=== PATIENT | male | born 1935 | race Caucasian/White ===

== ENCOUNTER 2021-11-19 10:30 | Outpatient (CLI) | payer SELFPAY ==
[~2021-11-19 10:30] MED LIST: ASCO500C18 PO; FEOSOL PO; GLIM4TAB7 PO; HYDR12.5 PO; LEVO200T43 PO; MELA5TAB12 PO; METO50TA7 PO; MULT1TAB PO; OMEP-84 PO; POTA-82 PO; RIVA20TA PO; ROSU10TA2 PO; SACU1TAB; SYN0.025T PO; TRAZ-256 PO
== END 2021-11-19 23:59 | disposition home or self-care (01) ==
LOC: VAS 10:30
DX: Z13.6 Encounter for screening for cardiovascular disorders (principal)

== ENCOUNTER 2023-05-25 08:18 | Day surgery (SDC) | payer MEDICARE ==
[~2023-05-25] VITALS: Ht 180.3 cm; Wt 77.6 kg
[2023-05-25] VITALS (7 sets, daily range): BP systolic 178–191; BP diastolic 80–94; PULSE 65–80; RESP 16; TEMP 97.9; O2SAT 95–97
[~2023-05-25 08:18] MED LIST changes: +POTA-366 PO; -POTA-82 PO
[2023-05-25] MEDS ORDERED: METO-411 PO (08:53)
[2023-05-25] MEDS ORDERED: ROSU40TA22 PO (08:53)
[2023-05-25] MEDS ORDERED: IRON45TA7 PO (08:55)
[2023-05-25] MEDS ORDERED: FLO0.4C PO (08:58)
== END 2023-05-25 10:50 | disposition home or self-care (01) ==
LOC: SSTAY O 08:18
PROVIDERS: ATTEND Radiology Vascular & Interventional Radiology
DX: J90 Pleural effusion, not elsewhere classified (principal); I10 Essential (primary) hypertension; D50.9 Iron deficiency anemia, unspecified; E03.9 Hypothyroidism, unspecified; E11.9 Type 2 diabetes mellitus without complications; K21.9 Gastro-esophageal reflux disease without esophagitis; E78.5 Hyperlipidemia, unspecified; N40.0 Benign prostatic hyperplasia without lower urinary tract symptoms; I48.91 Unspecified atrial fibrillation; Z95.810 Presence of automatic (implantable) cardiac defibrillator; Z88.5 Allergy status to narcotic agent; Z79.899 Other long term (current) drug therapy
CPT/HCPCS: 32555; C1729; J3490

== ENCOUNTER 2023-07-14 11:25 | Day surgery (SDC) | payer MEDICARE ==
[2023-07-14] VITALS (7 sets, daily range): BP systolic 132–188; BP diastolic 63–95; PULSE 65–81; RESP 14–16; TEMP 97.7; O2SAT 93–99
[~2023-07-14] VITALS: Ht 172.7 cm; Wt 72.8 kg
[~2023-07-14 11:25] MED LIST changes: -FEOSOL PO; +FLO0.4C PO; +IRON45TA7 PO; +METO-411 PO; -ROSU10TA2 PO; +ROSU40TA22 PO; -SYN0.025T PO
[2023-07-14] MEDS ORDERED: normal saline 1,000 ML IV SCH (11:55)
[2023-07-14] MEDS ORDERED: LORazepam 0.5 MG tablet PO PRN (11:55)
[2023-07-14] MEDS ORDERED: LIDOcaine 1% (10mg/ml)w/preservative inj. 20ml MDV ONE (12:03)
[2023-07-14] MEDS ORDERED: iohexol 350 MG/ML 50ML vial IV ONE (12:03)
[2023-07-14] MEDS ORDERED: fentaNYL/PF 50MCG/1 ML 2ML syringe ONE (12:03)
[2023-07-14] MEDS ORDERED: midazolam 1 mg/ML 2ml injection ONE (12:03)
[2023-07-14] MEDS ORDERED: SPIR25TA5 PO (12:27)
[2023-07-14] MEDS ORDERED: SACU1TAB4 PO (12:27)
[2023-07-14] MEDS ORDERED: FURO20TA4 PO (12:30)
[2023-07-14] MEDS ORDERED: ALLO100T PO (12:33)
[2023-07-14] MEDS ORDERED: GLIM2TAB6 PO (12:34)
[2023-07-14] MEDS ORDERED: CLON0.1T2 PO (12:35)
[2023-07-14] MEDS ORDERED: potassium Cl 20mEq/100mL bag 100 ML IV ONE ×2 (12:48→12:49)
[2023-07-14 12:59] LABS: INR 0.9 INR; PROTHROMBIN TIME 10.2 SECONDS (9.0-12.0)
[2023-07-14 13:06] LABS: ALBUMIN 2.9 G/DL (3.4-5.0); ANION GAP 4 (8-16); BLOOD UREA NITROGEN 25 MG/DL (7-18); BUN/CREATININE RATIO 16.6 (10.0-20.0); CALCIUM 9.2 MG/DL (8.5-10.1); CHLORIDE 101 MMOL/L (99-107); CREATININE 1.51 MG/DL (0.60-1.10); GLUCOSE 80 MG/DL (70-104); SODIUM 139 MMOL/L (135-145); TOTAL CARBON DIOXIDE 34.5 MMOL/L (24-32); eCRCL 34 ML/MIN; eGFR 44 ML/MIN
[2023-07-14 13:09] LABS: POTASSIUM 2.7 MMOL/L (3.5-5.1)
[2023-07-14] MEDS ORDERED: hydrALAZINE 20mg/ml inj. IV ONE (13:47)
[2023-07-14] MEDS ORDERED: HYDROcodone/acetaminophen 10/325mg tab PO PRN (14:10)
[2023-07-14] MEDS ORDERED: HYDROcodone/acetaminophen 5mg/325mg tablet PO PRN (14:10)
[2023-07-14] MEDS ORDERED: potassium Cl 20 mEq SR tablet PO ONE (14:15)
[2023-07-15 06:10] LABS: ISTAT HGB MIX 12.2 g/dl (14.0-17.9); ISTAT Hct MIX 36 %PCV (42-52); ISTAT O2 SATURATION MIX VENOUS 58 % (60-80); ISTAT SOURCE VEN
== END 2023-07-14 16:20 | disposition home or self-care (01) ==
LOC: SSTAY O 11:25
PROVIDERS: ATTEND Student in an Organized Health Care Education/Training Program
DX: I11.0 Hypertensive heart disease with heart failure (principal); I50.9 Heart failure, unspecified; E03.9 Hypothyroidism, unspecified; M10.9 Gout, unspecified; E78.5 Hyperlipidemia, unspecified; G47.30 Sleep apnea, unspecified; I48.0 Paroxysmal atrial fibrillation; I49.5 Sick sinus syndrome; Z79.899 Other long term (current) drug therapy; Z88.5 Allergy status to narcotic agent; Z95.0 Presence of cardiac pacemaker
CPT/HCPCS: 33289; 36415; 80048; 82803; 85014; 85610; 93005; 99152; 99153; C2624; J0360; J1644; J2250; J3010; J3480; J3490; J7030; Q9967; 85025; A6258; A6402; C1751; C1769; C1894

== ENCOUNTER 2024-07-15 16:33 | Inpatient (IN) | payer MEDICARE ==
[~2024-07-15] VITALS: Ht 180.3 cm; Wt 64.2 kg
[~2024-07-15 16:33] MED LIST changes: +ALLO100T PO; +CLON0.1T2 PO; +FURO20TA4 PO; +GLIM2TAB6 PO; -ROSU40TA22 PO; +ROSU40TA89 PO; -SACU1TAB; +SACU1TAB4 PO; +SPIR25TA5 PO
[2024-07-15 17:05] LABS: BASOPHILS % (AUTO) 0.1 % (0-1); EOSINOPHILS # (AUTO) 0.2 X10'3 (0-0.9); EOSINOPHILS % (AUTO) 1.6 % (0-6); HEMATOCRIT 28.9 % (42.0-52.0); HEMOGLOBIN 9.8 g/dl (14.0-17.9); LYMPHOCYTES # (AUTO) 0.6 X10'3 (1.1-4.8); LYMPHOCYTES % (AUTO) 6.1 % (21-51); MEAN CORPUSCULAR HEMOGLOBIN 32.8 PG (27.0-31.0); MEAN CORPUSCULAR HGB CONC 34.1 g/dL (33.0-36.5); MEAN CORPUSCULAR VOLUME 96.2 FL (78-98); MEAN PLATELET VOLUME 7.4 FL (7.4-10.4); MONOCYTES # (AUTO) 0.7 X10'3 (0-0.9); MONOCYTES % (AUTO) 6.9 % (2-12); NEUTROPHILS # (AUTO) 8.1 X10'3 (1.8-7.7); NEUTROPHILS % (AUTO) 85.3 % (42-75); PLATELET COUNT 324 X10'3 (140-440); WHITE BLOOD COUNT 9.5 X10'3 (4.5-11.0)
[2024-07-15 17:11] LABS: ALANINE AMINOTRANSFERASE 25 U/L (12-78); ALBUMIN 3.3 G/DL (3.4-5.0); ALBUMIN/GLOBULIN RATIO 0.7 (1.1-1.5); ALKALINE PHOSPHATASE 65 IU/L (46-116); ANION GAP 14 (8-16); ASPARTATE AMINO TRANSFERASE 13 U/L (10-37); BILIRUBIN,TOTAL 0.4 MG/DL (0.1-1.0); BLOOD UREA NITROGEN 140 MG/DL (7-18); BUN/CREATININE RATIO 41.5 (10.0-20.0); CALCIUM 9.7 MG/DL (8.5-10.1); CHLORIDE 100 MMOL/L (99-107); CREATININE 3.37 MG/DL (0.60-1.10); GLUCOSE 136 MG/DL (70-104); POTASSIUM 5.3 MMOL/L (3.5-5.1); SODIUM 132 MMOL/L (135-145); TOTAL CARBON DIOXIDE 18.5 MMOL/L (24-32); TOTAL PROTEIN 8.3 G/DL (6.4-8.2); eCRCL 14 ML/MIN; eGFR 17 ML/MIN
[2024-07-15 17:19] LABS: MAGNESIUM 2.4 MG/DL (1.5-2.4); PRO BRAIN NATRIURETIC PEPTIDE 6435 PG/ML (0-450)
[2024-07-15 19:17] LABS: BILIRUBIN,URINE NEGATIVE (Neg); CLARITY,URINE CLEAR (Clear); COLOR,URINE YELLOW (Yellow); GLUCOSE, URINE NEGATIVE (Neg); KETONES,URINE NEGATIVE (Neg); LEUKOCYTE ESTERASE ,URINE NEGATIVE (Neg); NITRITES, URINE NEGATIVE (Neg); OCCULT BLOOD,URINE NEGATIVE (Neg); PH,URINE 5.5 (4.8-8.0); PROTEIN,URINE 100 mg/dl (Neg); UROBILINOGEN,URINE 0.2 E.U/dL (0.2-1.0)
[2024-07-15 19:25] LABS: UA COLLECTION TYPE FOLEY CATH
[2024-07-15 19:32] LABS: BACTERIA,URINE FEW /HPF (Neg); MUCUS STRANDS NONE SEEN /LPF (Neg); RBC,URINE 0-2 /HPF (0-2); SQUAMOUS EPITHELIAL CELL,UR NONE SEEN /LPF (FEW); WBC,URINE 0-4 /HPF (0-4)
[2024-07-15 19:33] LABS: HYALINE CASTS 0-3 /LPF (NEGATIVE)
[2024-07-15] MEDS: PERFLUTREN PROTEIN-A MICROSPHR (Optison) 0.22 MG/ML 3ML VIAL IV ONE (19:40)
[2024-07-15] MEDS ORDERED: potassium Cl 20 mEq SR tablet PO PRN ×2 (21:55)
[2024-07-15] MEDS ORDERED: HYDROcodone/acetaminophen 5mg/325mg tablet PO PRN (21:55)
[2024-07-15] MEDS ORDERED: ondansetron/PF 4mg/2ml inj IV PRN (21:55)
[2024-07-15] MEDS ORDERED: mag hydrox/Alum hydrox/simeth 30ml oral suspension PO PRN (21:55)
[2024-07-15] MEDS ORDERED: magnesium hydroxide 30ml (MOM) UD suspension PO PRN (21:55)
[2024-07-15] MEDS ORDERED: potassium Cl 40MEQ/1/2NS 520ml 520 ML IV PRN (21:55)
[2024-07-15] MEDS ORDERED: magnesium Cl slow-release 64mg tablet PO PRN (21:55)
[2024-07-15] MEDS ORDERED: magnesium sulf-water 4G/100mL 100 ML IV PRN (21:55)
[2024-07-15] MEDS ORDERED: magnesium sulf-water 2g/50mL 50 ML IV PRN (21:55)
[2024-07-15] MEDS ORDERED: acetaminophen 325mg tablet PO PRN ×2 (21:55)
[2024-07-15 22:35] VITALS: BP 127/58; PULSE 84; RESP 16; TEMP 97.9; O2SAT 100
[2024-07-15 22:46] LABS: INR 1.1 INR; PROTHROMBIN TIME 11.4 SECONDS (9.0-12.0)
[2024-07-15 23:00] VITALS: RESP 16; O2SAT 100
[2024-07-15 23:11] LABS: PHOSPHORUS 4.2 MG/DL (2.3-4.5)
[2024-07-15 23:14] LABS: TOTAL PROTEIN,URINE RANDOM 108.2 MG/DL
[2024-07-16] MEDS ORDERED: APIX2.5T PO (00:13)
[2024-07-16] MEDS ORDERED: [UNRECOGNIZED DRUG - OTHER] PO (00:13)
[2024-07-16] MEDS ORDERED: SENN-294 PO (00:13)
[2024-07-16] MEDS: tamsulosin 0.4mg capsule PO SCH (00:21)
[2024-07-16 06:49] LABS: INR 1.1 INR; PROTHROMBIN TIME 11.4 SECONDS (9.0-12.0)
[2024-07-16 06:51] VITALS: BP 106/56; PULSE 70; RESP 16; TEMP 97.8; O2SAT 97
[2024-07-16 07:00] LABS: ALBUMIN 2.8 G/DL (3.4-5.0); ANION GAP 13 (8-16); BLOOD UREA NITROGEN 135 MG/DL (7-18); BUN/CREATININE RATIO 42.7 (10.0-20.0); CHLORIDE 102 MMOL/L (99-107); CHOL/HDL RATIO 1.8 (0.00-4.99); CHOLESTEROL 87 MG/DL (0-200); CREATININE 3.16 MG/DL (0.60-1.10); GLUCOSE 123 MG/DL (70-104); HDL CHOLESTEROL 48 MG/DL (35-60); LDL CHOLESTEROL 37 MG/DL (50-100); MAGNESIUM 2.2 MG/DL (1.5-2.4); PHOSPHORUS 3.9 MG/DL (2.3-4.5); POTASSIUM 4.8 MMOL/L (3.5-5.1); SODIUM 134 MMOL/L (135-145); TOTAL CARBON DIOXIDE 19.2 MMOL/L (24-32); TRIGLYCERIDES 77 MG/DL (20-135); eCRCL 15 ML/MIN; eGFR 19 ML/MIN
[2024-07-16 07:03] LABS: BASOPHILS % (AUTO) 0.2 % (0-1); EOSINOPHILS # (AUTO) 0.2 X10'3 (0-0.9); EOSINOPHILS % (AUTO) 2.1 % (0-6); HEMATOCRIT 28.3 % (42.0-52.0); HEMOGLOBIN 9.8 g/dl (14.0-17.9); LYMPHOCYTES # (AUTO) 0.5 X10'3 (1.1-4.8); LYMPHOCYTES % (AUTO) 5.6 % (21-51); MEAN CORPUSCULAR HEMOGLOBIN 34.5 PG (27.0-31.0); MEAN CORPUSCULAR HGB CONC 34.7 g/dL (33.0-36.5); MEAN CORPUSCULAR VOLUME 99.4 FL (78-98); MEAN PLATELET VOLUME 7.7 FL (7.4-10.4); MONOCYTES # (AUTO) 0.7 X10'3 (0-0.9); MONOCYTES % (AUTO) 8.6 % (2-12); NEUTROPHILS % (AUTO) 83.5 % (42-75); PLATELET COUNT 290 X10'3 (140-440); RED BLOOD COUNT 2.85 X10'6 (4.70-6.10); RED CELL DISTRIBUTION WIDTH 13.6 % (11.5-14.5); WHITE BLOOD COUNT 8.4 X10'3 (4.5-11.0)
[2024-07-16] MEDS: pantoprazole 40 MG vial IV SCH (08:03)
[2024-07-16] MEDS: docusate sod 100mg capsule PO SCH (08:03)
[2024-07-16] MEDS: K and/or MAG REPLACEMENT MC SCH (08:04)
[2024-07-16 08:10] VITALS: RESP 16
[2024-07-16 10:00] VITALS: BP 100/50; PULSE 77; TEMP 98.3; O2SAT 95
[2024-07-16] MEDS: HYDROcodone/acetaminophen 10/325mg tab PO PRN (11:34)
[2024-07-16 11:39] LABS: % IRON SATURATION 15 % (11-46); IRON 32 UG/DL (53-167); TOTAL IRON BINDING CAPACITY 214 UG/DL (259-388)
[2024-07-16] MEDS ORDERED: [UNRECOGNIZED DRUG - MIXTURE] PO SCH (15:40)
[2024-07-16 19:10] VITALS: BP 136/63; PULSE 85; RESP 16; RESP 18; TEMP 96.5; O2SAT 100; O2SAT 97
[2024-07-16] MEDS: SACUBITRIL PO SCH (20:00)
[2024-07-16] MEDS: VALSARTAN PO SCH (20:00)
[2024-07-16] MEDS: apixaban 2.5mg tablet PO SCH (20:57)
[2024-07-16] MEDS: furosemide 20MG tablet PO SCH (20:57)
[2024-07-16] MEDS: ascorbic acid 500mg tablet PO SCH (20:57)
[2024-07-16] MEDS: traZODone 50mg tablet PO SCH (20:58)
[2024-07-16] MEDS: MELATONIN 5 MG PO SCH (21:00)
[2024-07-16] MEDS: diatr meglu/diatrizoate 30ml oral sol.-(3 dose) bottle PO SCH (21:05)
[2024-07-16 22:00] VITALS: BP 136/63; PULSE 85; RESP 16; TEMP 96.5; O2SAT 97
[2024-07-17 04:33] LABS: INR 1.1 INR; PROTHROMBIN TIME 11.4 SECONDS (9.0-12.0)
[2024-07-17 04:36] LABS: BASOPHILS % (AUTO) 0.2 % (0-1); EOSINOPHILS # (AUTO) 0.2 X10'3 (0-0.9); EOSINOPHILS % (AUTO) 1.9 % (0-6); HEMATOCRIT 28.1 % (42.0-52.0); HEMOGLOBIN 9.6 g/dl (14.0-17.9); LYMPHOCYTES # (AUTO) 0.4 X10'3 (1.1-4.8); LYMPHOCYTES % (AUTO) 4.9 % (21-51); MEAN CORPUSCULAR HEMOGLOBIN 32.9 PG (27.0-31.0); MEAN CORPUSCULAR HGB CONC 34.1 g/dL (33.0-36.5); MEAN CORPUSCULAR VOLUME 96.4 FL (78-98); MEAN PLATELET VOLUME 7.4 FL (7.4-10.4); MONOCYTES # (AUTO) 0.7 X10'3 (0-0.9); MONOCYTES % (AUTO) 7.3 % (2-12); NEUTROPHILS # (AUTO) 7.9 X10'3 (1.8-7.7); NEUTROPHILS % (AUTO) 85.7 % (42-75); PLATELET COUNT 271 X10'3 (140-440); RED BLOOD COUNT 2.92 X10'6 (4.70-6.10); WHITE BLOOD COUNT 9.2 X10'3 (4.5-11.0)
[2024-07-17 04:55] LABS: ALBUMIN 2.8 G/DL (3.4-5.0); ANION GAP 12 (8-16); BLOOD UREA NITROGEN 129 MG/DL (7-18); BUN/CREATININE RATIO 40.8 (10.0-20.0); CALCIUM 8.9 MG/DL (8.5-10.1); CHLORIDE 104 MMOL/L (99-107); CREATININE 3.16 MG/DL (0.60-1.10); GLUCOSE 112 MG/DL (70-104); LACTATE DEHYDROGENASE 138 U/L (85-227); MAGNESIUM 2.2 MG/DL (1.5-2.4); PHOSPHORUS 3.8 MG/DL (2.3-4.5); POTASSIUM 4.5 MMOL/L (3.5-5.1); SODIUM 136 MMOL/L (135-145); TOTAL CARBON DIOXIDE 20.5 MMOL/L (24-32); eCRCL 15 ML/MIN; eGFR 19 ML/MIN
[2024-07-17 05:00] VITALS: BP 131/58; PULSE 94; RESP 15; TEMP 97; O2SAT 99
[2024-07-17] MEDS: potassium Cl 20 mEq SR tablet PO SCH (08:00)
[2024-07-17] MEDS: levoTHYROXINE 100mcg tablet PO SCH (08:12)
[2024-07-17] MEDS: sennosides/docusate sodium tablet PO SCH (08:13)
[2024-07-17] MEDS: HYDROchlorothiazide 12.5mg capsule PO SCH (08:13)
[2024-07-17] MEDS: metoprolol succinate 25mg (24-HOUR) SR. Tablet PO SCH (08:13)
[2024-07-17] MEDS: atorvastatin 20mg tablet PO SCH (08:13)
[2024-07-17] MEDS: multivitamins, therapeutics tablet PO SCH (08:15)
[2024-07-17] MEDS: spironolactone 25 MG tablet PO SCH (08:15)
[2024-07-17] MEDS: cloNIDine 0.1 mg tablet PO SCH (08:15)
[2024-07-17] MEDS: tamsulosin 0.4mg capsule PO SCH (08:15)
[2024-07-17] MEDS: pantoprazole 40mg Tablet.DR PO SCH (08:15)
[2024-07-17 08:25] VITALS: RESP 16
[2024-07-17 10:33] VITALS: BP 105/49; PULSE 82; RESP 18; TEMP 97.8; O2SAT 98
[2024-07-17 11:22] VITALS: BP_SYST 105; BP_SYST 84; BP_SYST 94; BP_DIAS 24; BP_DIAS 39; BP_DIAS 49; PULSE 81; PULSE 82; PULSE 84
[2024-07-17 16:11] LABS: OCCULT BLOOD STOOL POSITIVE (Neg)
[2024-07-17 19:00] VITALS: BP 97/51; PULSE 78; RESP 16; TEMP 97.7; O2SAT 93
[2024-07-17 22:30] VITALS: BP 105/59; PULSE 89; RESP 16; TEMP 97.8; O2SAT 94
[2024-07-18 06:31] LABS: BASOPHILS % (AUTO) 0.1 % (0-1); EOSINOPHILS # (AUTO) 0.1 X10'3 (0-0.9); EOSINOPHILS % (AUTO) 1.2 % (0-6); HEMATOCRIT 24.6 % (42.0-52.0); HEMOGLOBIN 8.3 g/dl (14.0-17.9); LYMPHOCYTES # (AUTO) 0.4 X10'3 (1.1-4.8); LYMPHOCYTES % (AUTO) 3.4 % (21-51); MEAN CORPUSCULAR HEMOGLOBIN 32.2 PG (27.0-31.0); MEAN CORPUSCULAR HGB CONC 33.7 g/dL (33.0-36.5); MEAN CORPUSCULAR VOLUME 95.6 FL (78-98); MEAN PLATELET VOLUME 7.6 FL (7.4-10.4); MONOCYTES % (AUTO) 8.1 % (2-12); NEUTROPHILS # (AUTO) 10.8 X10'3 (1.8-7.7); NEUTROPHILS % (AUTO) 87.2 % (42-75); PLATELET COUNT 237 X10'3 (140-440); RED BLOOD COUNT 2.57 X10'6 (4.70-6.10); RED CELL DISTRIBUTION WIDTH 13.6 % (11.5-14.5); WHITE BLOOD COUNT 12.4 X10'3 (4.5-11.0)
[2024-07-18 06:43] LABS: INR 1.1 INR; PROTHROMBIN TIME 11.9 SECONDS (9.0-12.0)
[2024-07-18 06:46] LABS: ALBUMIN 2.3 G/DL (3.4-5.0); ANION GAP 11 (8-16); BLOOD UREA NITROGEN 102 MG/DL (7-18); BUN/CREATININE RATIO 41.1 (10.0-20.0); CALCIUM 8.3 MG/DL (8.5-10.1); CHLORIDE 103 MMOL/L (99-107); CREATININE 2.48 MG/DL (0.60-1.10); GLUCOSE 128 MG/DL (70-104); POTASSIUM 4.2 MMOL/L (3.5-5.1); SODIUM 137 MMOL/L (135-145); TOTAL CARBON DIOXIDE 22.9 MMOL/L (24-32); eCRCL 14 ML/MIN; eGFR 25 ML/MIN
[2024-07-18 10:00] VITALS: BP 99/75; PULSE 96; RESP 18; TEMP 97.5; O2SAT 96
[2024-07-18 18:00] VITALS: BP 118/51; PULSE 90; RESP 20; TEMP 98; O2SAT 97
[2024-07-18 20:37] LABS: HEMATOCRIT 23.6 % (42.0-52.0); HEMOGLOBIN 7.9 g/dl (14.0-17.9); MEAN CORPUSCULAR HEMOGLOBIN 31.9 PG (27.0-31.0); MEAN CORPUSCULAR HGB CONC 33.5 g/dL (33.0-36.5); MEAN CORPUSCULAR VOLUME 95.5 FL (78-98); MEAN PLATELET VOLUME 7.1 FL (7.4-10.4); PLATELET COUNT 229 X10'3 (140-440); RED BLOOD COUNT 2.47 X10'6 (4.70-6.10); WHITE BLOOD COUNT 9.5 X10'3 (4.5-11.0)
[2024-07-18 22:00] VITALS: BP 128/53; PULSE 81; RESP 16; TEMP 98.1; O2SAT 98
[2024-07-18] MEDS: nystatin 15 GM powder TP SCH (23:12)
[2024-07-19 03:02] LABS: BASOPHILS % (AUTO) 0.1 % (0-1); EOSINOPHILS # (AUTO) 0.1 X10'3 (0-0.9); EOSINOPHILS % (AUTO) 1.7 % (0-6); HEMOGLOBIN 7.9 g/dl (14.0-17.9); LYMPHOCYTES # (AUTO) 0.5 X10'3 (1.1-4.8); LYMPHOCYTES % (AUTO) 5.5 % (21-51); MEAN CORPUSCULAR HEMOGLOBIN 32.5 PG (27.0-31.0); MEAN CORPUSCULAR HGB CONC 34.3 g/dL (33.0-36.5); MEAN CORPUSCULAR VOLUME 94.7 FL (78-98); MEAN PLATELET VOLUME 7.5 FL (7.4-10.4); MONOCYTES # (AUTO) 0.8 X10'3 (0-0.9); MONOCYTES % (AUTO) 9.9 % (2-12); NEUTROPHILS % (AUTO) 82.8 % (42-75); PLATELET COUNT 216 X10'3 (140-440); RED BLOOD COUNT 2.42 X10'6 (4.70-6.10); RED CELL DISTRIBUTION WIDTH 13.7 % (11.5-14.5); WHITE BLOOD COUNT 8.4 X10'3 (4.5-11.0)
[2024-07-19 03:13] LABS: INR 1.2 INR; PROTHROMBIN TIME 12.1 SECONDS (9.0-12.0)
[2024-07-19 03:15] LABS: ALBUMIN 2.3 G/DL (3.4-5.0); ANION GAP 8 (8-16); BLOOD UREA NITROGEN 92 MG/DL (7-18); BUN/CREATININE RATIO 41.4 (10.0-20.0); CALCIUM 8.1 MG/DL (8.5-10.1); CHLORIDE 104 MMOL/L (99-107); CREATININE 2.22 MG/DL (0.60-1.10); GLUCOSE 123 MG/DL (70-104); MAGNESIUM 1.8 MG/DL (1.5-2.4); PHOSPHORUS 2.7 MG/DL (2.3-4.5); POTASSIUM 3.8 MMOL/L (3.5-5.1); SODIUM 136 MMOL/L (135-145); TOTAL CARBON DIOXIDE 23.6 MMOL/L (24-32); eCRCL 16 ML/MIN; eGFR 28 ML/MIN
[2024-07-19 06:00] VITALS: BP 131/72; PULSE 103; RESP 16; TEMP 97.3; O2SAT 96
[2024-07-19] MEDS: EPOETIN ALFA-EPBX 20,000 UNIT/ML 1 ML MDV IV ONE (08:25)
[2024-07-19 10:00] VITALS: BP 133/61; PULSE 102; RESP 16; TEMP 97.5; O2SAT 98
[2024-07-19 11:12] LABS: % FREE PSA 27.3 % (.); PROSTATE SPECIFIC AG, SERUM 3.7 ng/mL (0.0-4.0); PSA, FREE 1.01 ng/mL
[2024-07-19] MEDS: EPOETIN ALFA-EPBX 20,000 UNIT/ML 1 ML MDV SQ ONE (11:22)
[2024-07-19] MEDS: iron sucrose complex injection 300 MG in normal saline 250ml IV soln 250 ML IV SCH (11:58)
[2024-07-19 12:11] LABS: BASOPHILS % (AUTO) 0.1 % (0-1); EOSINOPHILS # (AUTO) 0.1 X10'3 (0-0.9); EOSINOPHILS % (AUTO) 0.5 % (0-6); HEMATOCRIT 28.6 % (42.0-52.0); HEMOGLOBIN 9.1 g/dl (14.0-17.9); LYMPHOCYTES # (AUTO) 0.3 X10'3 (1.1-4.8); LYMPHOCYTES % (AUTO) 3.6 % (21-51); MEAN CORPUSCULAR HEMOGLOBIN 31.6 PG (27.0-31.0); MEAN CORPUSCULAR HGB CONC 31.9 g/dL (33.0-36.5); MEAN PLATELET VOLUME 7.4 FL (7.4-10.4); MONOCYTES # (AUTO) 0.9 X10'3 (0-0.9); MONOCYTES % (AUTO) 9.2 % (2-12); NEUTROPHILS # (AUTO) 8.2 X10'3 (1.8-7.7); NEUTROPHILS % (AUTO) 86.6 % (42-75); PLATELET COUNT 240 X10'3 (140-440); RED BLOOD COUNT 2.89 X10'6 (4.70-6.10); RED CELL DISTRIBUTION WIDTH 14.6 % (11.5-14.5); WHITE BLOOD COUNT 9.5 X10'3 (4.5-11.0)
[2024-07-19 12:13] LABS: MEAN CORPUSCULAR VOLUME 99.1 FL (78-98)
[2024-07-19 18:30] VITALS: BP 135/65; PULSE 99; RESP 18; TEMP 97.2; O2SAT 96
[2024-07-19] MEDS: Melatonin 3mg tablet PO SCH (20:08)
[2024-07-19 22:00] VITALS: BP 153/70; PULSE 117; RESP 14; TEMP 97.9; O2SAT 96
[2024-07-20] VITALS (14 sets, daily range): BP systolic 96–158; BP diastolic 42–87; PULSE 106–118; RESP 8–19; TEMP 97.2–98.4; O2SAT 93–100
[2024-07-20 06:31] LABS: BASOPHILS % (AUTO) 0.3 % (0-1); EOSINOPHILS # (AUTO) 0.1 X10'3 (0-0.9); EOSINOPHILS % (AUTO) 1.9 % (0-6); HEMATOCRIT 24.2 % (42.0-52.0); HEMOGLOBIN 8.3 g/dl (14.0-17.9); LYMPHOCYTES # (AUTO) 0.3 X10'3 (1.1-4.8); LYMPHOCYTES % (AUTO) 4.5 % (21-51); MEAN CORPUSCULAR HEMOGLOBIN 32.9 PG (27.0-31.0); MEAN CORPUSCULAR HGB CONC 34.2 g/dL (33.0-36.5); MEAN CORPUSCULAR VOLUME 96.1 FL (78-98); MEAN PLATELET VOLUME 7.3 FL (7.4-10.4); MONOCYTES # (AUTO) 0.7 X10'3 (0-0.9); MONOCYTES % (AUTO) 8.8 % (2-12); NEUTROPHILS # (AUTO) 6.4 X10'3 (1.8-7.7); NEUTROPHILS % (AUTO) 84.5 % (42-75); PLATELET COUNT 215 X10'3 (140-440); RED BLOOD COUNT 2.52 X10'6 (4.70-6.10); WHITE BLOOD COUNT 7.6 X10'3 (4.5-11.0)
[2024-07-20 06:35] LABS: INR 1.2 INR; PROTHROMBIN TIME 12.1 SECONDS (9.0-12.0)
[2024-07-20 06:39] LABS: ANION GAP 8 (8-16); BLOOD UREA NITROGEN 68 MG/DL (7-18); BUN/CREATININE RATIO 38.9 (10.0-20.0); CALCIUM 7.7 MG/DL (8.5-10.1); CHLORIDE 104 MMOL/L (99-107); CREATININE 1.75 MG/DL (0.60-1.10); GLUCOSE 131 MG/DL (70-104); MAGNESIUM 1.7 MG/DL (1.5-2.4); PHOSPHORUS 2.5 MG/DL (2.3-4.5); POTASSIUM 3.5 MMOL/L (3.5-5.1); SODIUM 138 MMOL/L (135-145); TOTAL CARBON DIOXIDE 26.4 MMOL/L (24-32); eCRCL 20 ML/MIN; eGFR 37 ML/MIN
[2024-07-20] MEDS ORDERED: iron sucrose complex injection 100 MG in normal saline 100ml IV soln 95 ML IV SCH (08:00)
[2024-07-20 09:28] LABS: A/G RATIO 0.8 (0.7-1.7); ALPHA-1-GLOBULIN 0.3 g/dL (0.0-0.4); BETA GLOBULIN 0.9 g/dL (0.7-1.3); GAMMA GLOBULIN 1.4 g/dL (0.4-1.8); GLOBULIN, TOTAL 3.6 g/dL (2.2-3.9); M-SPIKE Not Observed g/dL (Not Observed); PROTEIN, TOTAL, SERUM 6.6 g/dL (6.0-8.5)
[2024-07-20] MEDS: NUT.TX.IMP.RENAL FXN,LAC-REDUC (Nepro) 237 ML VANILLA PO SCH (13:00)
[2024-07-20] MEDS ORDERED: LIDOcaine 2% Viscous 15ml cup ONE (13:07)
[2024-07-20] MEDS ORDERED: fentaNYL/PF 50MCG/1 ML 2ML syringe ONE (13:08)
[2024-07-20] MEDS ORDERED: MIDAZolam 1 MG/ML 5ML VIAL ONE (13:08)
== END 2024-07-20 16:45 | DRG 377 ==
LOC: ER 16:33 → ORTHO 4S 21:47
PROVIDERS: ADMIT Internal Medicine Sleep Medicine; ATTEND Internal Medicine
PROC: CT131ZZ Planar Nuclear Medicine Imaging of Kidneys, Ureters and Bladder using Technetium 99m (Tc-99m) (ICD-10-PCS; principal; 2024-07-18)
PROC: 0DJ08ZZ Inspection of Upper Intestinal Tract, Via Natural or Artificial Opening Endoscopic (ICD-10-PCS; 2024-07-20)
DX: K92.2 Gastrointestinal hemorrhage, unspecified (principal); E43 Unspecified severe protein-calorie malnutrition; N17.0 Acute kidney failure with tubular necrosis; I13.0 Hypertensive heart and chronic kidney disease with heart failure and stage 1 through stage 4 chronic kidney disease, or unspecified chronic kidney disease; Z68.1 Body mass index [BMI] 19.9 or less, adult; I31.39 Other pericardial effusion (noninflammatory); N18.4 Chronic kidney disease, stage 4 (severe); N13.30 Unspecified hydronephrosis; N40.1 Benign prostatic hyperplasia with lower urinary tract symptoms; Z20.822 Contact with and (suspected) exposure to COVID-19; Z66 Do not resuscitate; I50.9 Heart failure, unspecified; E03.9 Hypothyroidism, unspecified; N28.1 Cyst of kidney, acquired; K59.00 Constipation, unspecified; D50.0 Iron deficiency anemia secondary to blood loss (chronic); J43.9 Emphysema, unspecified; F03.90 Unspecified dementia, unspecified severity, without behavioral disturbance, psychotic disturbance, mood disturbance, and anxiety; Z79.01 Long term (current) use of anticoagulants; Z79.84 Long term (current) use of oral hypoglycemic drugs; Z79.899 Other long term (current) drug therapy; Z88.5 Allergy status to narcotic agent; I48.0 Paroxysmal atrial fibrillation
CPT/HCPCS: 36415; 43235; 71045; 71046; 74176; 76770; 78707; 80048; 80053; 80061; 81001; 82272; 82570; 82728; 83036; 83540; 83550; 83615; 83735; 83880; 83970; 84100; 84133; 84153; 84154; 84155; 84156; 84165; 84300; 84484; 84520; 85025; 85027; 85610; 87081; 87502; 87503; 87811; 93005; 93306; 97110; 97116; 97161; 97162; 97530; 99152; 99285; A4314; A4620; A4649; A6212; A6213; A6449; A9562; G0378; J1756; J2250; J2470; J3010; J3490; J7030; J7050; Q4081; Q9963